=== PATIENT | female | born 1975 | race Hispanic/Latino ===

== ENCOUNTER 2021-06-03 14:07 | Inpatient (IN) | payer OTHER, SELFPAY ==
[2021-06-03] MEDS ORDERED: hydrALAZINE 20 MG/ML VIAL ONE (14:38)
[2021-06-03 15:10] LABS: #Basophils 0.1 thou/uL (0.0-0.2); #Eosinphils 0.1 thou/uL (0.0-0.7); #Lymphocytes 1.5 thou/uL (1.20-3.40); #Monocytes 0.6 thou/uL (0.11-0.59); #Neutrophils 14.7 thou/uL (1.40-6.50); %Basophils 0.4 % (0.0-1.0); %Eosinophils 0.4 % (0.0-10.0); %Lymphocytes 8.8 % (21.0-51.0); %Monocytes 3.4 % (0.0-10.0); Mean Corpuscular HGB CONC 33.5 g/dL (32.0-36.0); Mean Corpuscular Volume 86.5 fL (78.0-98.0); Mean Platelet Volume 7.5 fL (7.4-10.4); Platelet Count 368 thou/uL (130-400); Red Blood Cell (RBC) Count 4.48 mill/uL (4.20-5.40); White Blood Cell (WBC) Count 16.9 thou/uL (4.8-10.8)
[2021-06-03 15:33] LABS: ALT (SGPT) 15 U/L (8-55); AST (SGOT) 15 U/L (5-34); Alkaline Phosphatase 62 U/L (40-110); Anion Gap 16 mmol/L (10-20); BUN (Urea Nitrogen) 7 mg/dL (7.0-18.7); Bilirubin, Total 0.3 mg/dL (0.2-1.2); CK (CPK) 63 U/L (29-168); Calc. Creatinine Clearance 0 mL/min (70-130); Calcium 8.9 mg/dL (7.8-10.44); Carbon Dioxide 19 mmol/L (22-29); Chloride 102 mmol/L (98-107); Glucose 256 mg/dL (70-105); Potassium 3.9 mmol/L (3.5-5.1); Sodium 133 mmol/L (136-145)
[2021-06-03 15:35] LABS: BHCG - Serum Negative (NEGATIVE); Pregs Control Background? CLEAR/WHITE (CLR/WHITE); Pregs Control Bar Appear? YES (CONTROL BAR)
[2021-06-03] MEDS ORDERED: levETIRAcetam in NS 100 ML ONE (15:53)
[2021-06-03] MEDS ORDERED: niCARdipine 25 MG/10 ML VIAL ONE (16:11)
[2021-06-03 16:14] LABS: Thyroid Stimulating Hormone 7.5888 uIU/mL (0.35-4.94)
[2021-06-03] MEDS ORDERED: Amlodipine 5 MG TAB ONE (17:48)
[2021-06-03 17:49] LABS: Amphetamine Not Detected (NotDetected); Barbiturates Screen Not Detected (NotDetected); Benzodiazepine Screen Not Detected (NotDetected); Cocaine Metabolite Screen Not Detected (NotDetected); Methadone Not Detected (NotDetected); Methamphetamine Not Detected (NotDetected); Opiate Screen Not Detected (NotDetected); Oxycodone Screen Not Detected (NotDetected); Phencyclidine (PCP) Not Detected (NotDetected); THC/Cannabinoid Screen Not Detected (NotDetected); Tricyclic Screen Not Detected (NotDetected)
[2021-06-03] MEDS ORDERED: Lorazepam 2 MG/ML VIAL SLOW IVP PRN (17:59)
[2021-06-03] MEDS ORDERED: Senokot S 8.6-50 MG TAB PO PRN (17:59)
[2021-06-03] MEDS ORDERED: Dextrose 50% Abboject 50 ML SYRINGE SLOW IVP PRN (17:59)
[2021-06-03] MEDS ORDERED: Dextrose 5% in Water 1,000 ML IV PRN (17:59)
[2021-06-03] MEDS ORDERED: Ondansetron PF 4 MG/2 ML Vial IVP PRN (17:59)
[2021-06-03] MEDS ORDERED: Bisacodyl 10 MG SUPP PR PRN (17:59)
[2021-06-03] MEDS ORDERED: Calcium Carbonate 500 MG ChewTAB PO PRN (17:59)
[2021-06-03] MEDS ORDERED: HumaLOG 300 UNITS/3 ML VIAL SC PRN (17:59)
[2021-06-03] MEDS ORDERED: Guaifenesin DM 100-10/5 ML UDCUP PO PRN (17:59)
[2021-06-03] MEDS ORDERED: Metoprolol Tartrate 25 MG TAB PO SCH (19:00)
[2021-06-03] MEDS ORDERED: Nitroglycerin 2% Ointment 1 INCH/1 GM Packet ONE (19:03)
[2021-06-03] MEDS ORDERED: Metoprolol Tartrate 50 MG TAB ONE (19:03)
[2021-06-03] MEDS ORDERED: Metoprolol Tartrate 50 MG TAB PO SCH (21:00)
[2021-06-03] MEDS ORDERED: Insulin Glargine 10 UNITS in Pre-Filled Syringe 1 EACH SC SCH (21:00)
[2021-06-03] MEDS: Sodium Chloride 0.9% 1,000 ML IV SCH (21:33)
[2021-06-03] MEDS: Nitroglycerin 2% Ointment 1 INCH/1 GM Packet TOP SCH (21:33)
[2021-06-03 21:41] VITALS: BMI 41.5
[2021-06-03] MEDS: Lantus 1000 UNITS/10 ML VIAL SC SCH (21:59)
[2021-06-03] MEDS: Famotidine 20 MG TAB PO SCH (21:59)
[2021-06-03] MEDS ORDERED: Nitroglycerin 2% Ointment 1 INCH/1 GM Packet TOP SCH (22:00)
[2021-06-03 22:16] LABS: SARS-CoV-2 NAA Rapid Test Not Detected (NotDetected)
[2021-06-04] MEDS: Nitroglycerin 2% Ointment 1 INCH/1 GM Packet TOP SCH ×4 (03:23→20:52)
[2021-06-04] MEDS: Sodium Chloride 0.9% 1,000 ML IV SCH ×2 (03:24→15:25)
[2021-06-04 04:52] LABS: #Eosinphils 0.1 thou/uL (0.0-0.7); #Lymphocytes 2.8 thou/uL (1.20-3.40); #Monocytes 0.7 thou/uL (0.11-0.59); #Neutrophils 6.3 thou/uL (1.40-6.50); %Basophils 0.2 % (0.0-1.0); %Eosinophils 1.3 % (0.0-10.0); %Lymphocytes 27.9 % (21.0-51.0); %Neutrophils 63.7 % (42.0-75.0); Hemoglobin 10.5 g/dL (12.0-16.0); Mean Corpuscular HGB CONC 33.4 g/dL (32.0-36.0); Mean Corpuscular Hemoglobin 29.5 pg (27.0-31.0); Mean Corpuscular Volume 88.3 fL (78.0-98.0); Mean Platelet Volume 7.7 fL (7.4-10.4); Platelet Count 319 thou/uL (130-400); RBC Distribution Width 14.3 % (11.5-14.5); Red Blood Cell (RBC) Count 3.55 mill/uL (4.20-5.40); White Blood Cell (WBC) Count 9.9 thou/uL (4.8-10.8)
[2021-06-04 04:57] LABS: Hemoglobin A1c 6.5 % (4.0-6.0)
[2021-06-04 05:21] LABS: Anion Gap 13 mmol/L (10-20); BUN (Urea Nitrogen) 9 mg/dL (7.0-18.7); Calc. Creatinine Clearance 214 mL/min (70-130); Calcium 8.4 mg/dL (7.8-10.44); Carbon Dioxide 20 mmol/L (22-29); Chloride 108 mmol/L (98-107); Glucose 131 mg/dL (70-105); Potassium 3.5 mmol/L (3.5-5.1); Sodium 137 mmol/L (136-145)
[2021-06-04] MEDS: Levothyroxine Sodium 75 MCG TAB PO SCH (05:29)
[2021-06-04 05:45] LABS: Free T4 (Free Thyroxine) 0.67 ng/dL (0.70-1.48); Thyroid Stimulating Hormone 4.7084 uIU/mL (0.35-4.94)
[2021-06-04] MEDS: Amlodipine 10 MG TAB PO SCH (09:29)
[2021-06-04] MEDS: Famotidine 20 MG TAB PO SCH ×2 (09:29→20:51)
[2021-06-04] MEDS: Enoxaparin Sodium 40 MG/0.4 ML SYRINGE SC SCH (09:29)
[2021-06-04] MEDS: Lantus 1000 UNITS/10 ML VIAL SC SCH (09:29)
[2021-06-04] MEDS: Metoprolol Tartrate 50 MG TAB PO SCH ×2 (09:29→20:51)
[2021-06-04] MEDS ORDERED: Iopamidol 370 76% 100 ML VIAL ONE (09:37)
[2021-06-04 11:00] LABS: Syphilis Antibody Nonreactive (Nonreactive); Syphilis Antibody Index 0.04 S/CO (<1.00 Non-Reactive)
[2021-06-04] MEDS: HumaLOG 300 UNITS/3 ML VIAL SC PRN (12:22)
[2021-06-04] MEDS ORDERED: hydrALAZINE 20 MG/ML VIAL SLOW IVP PRN (12:34)
[2021-06-04] MEDS ORDERED: Lisinopril 20 MG TAB PO SCH (14:15)
[2021-06-04] MEDS: Acetaminophen 325 MG TAB PO PRN (21:03)
[2021-06-05] MEDS: Sodium Chloride 0.9% 1,000 ML IV SCH (02:11)
[2021-06-05] MEDS: Acetaminophen 325 MG TAB PO PRN (02:58)
[2021-06-05 03:36] VITALS: TEMP 98.4
[2021-06-05] MEDS: Nitroglycerin 2% Ointment 1 INCH/1 GM Packet TOP SCH (04:47)
[2021-06-05] MEDS: Levothyroxine Sodium 75 MCG TAB PO SCH (04:47)
[2021-06-05] MEDS: HumaLOG 300 UNITS/3 ML VIAL SC PRN ×2 (04:55→12:53)
[2021-06-05 08:00] VITALS: BP 145/70
[2021-06-05] MEDS: Metoprolol Tartrate 50 MG TAB PO SCH (08:03)
[2021-06-05] MEDS: Enoxaparin Sodium 40 MG/0.4 ML SYRINGE SC SCH (08:04)
[2021-06-05] MEDS: Amlodipine 10 MG TAB PO SCH (08:04)
[2021-06-05] MEDS: Famotidine 20 MG TAB PO SCH (08:04)
[2021-06-05] MEDS ORDERED: Lisinopril 20 MG TAB PO SCH (09:00)
== END 2021-06-05 14:01 | disposition home or self-care (01) | DRG 101 ==
LOC: ERS 14:07 → 2NO 17:29
PROVIDERS: ADMIT Internal Medicine; ATTEND Hospitalist
DX: G40.409 Other generalized epilepsy and epileptic syndromes, not intractable, without status epilepticus (principal); I16.1 Hypertensive emergency; Z68.41 Body mass index [BMI] 40.0-44.9, adult; Z20.822 Contact with and (suspected) exposure to COVID-19; I10 Essential (primary) hypertension; E11.9 Type 2 diabetes mellitus without complications; E03.9 Hypothyroidism, unspecified; E66.01 Morbid (severe) obesity due to excess calories; E86.0 Dehydration; Z79.899 Other long term (current) drug therapy; Z79.890 Hormone replacement therapy; Z91.14 Patient's other noncompliance with medication regimen
CPT/HCPCS: 36415; 36416; 70450; 70470; 71045; 80048; 80053; 80306; 82550; 82607; 82746; 83036; 83605; 84439; 84443; 84481; 84484; 84703; 85025; 86780; 87040; 87086; 93005; 93306; 94760; 95712; 95819; 95957; 96361; 96365; 96366; 96375; J0360; J1650; J1815; J1953; J7050; Q9967; U0002

== ENCOUNTER 2024-02-11 11:42 | Emergency (ER) | payer OTHER ==
[2024-02-11 12:36] LABS: Bacteria/HPF 1+ HPF (None Seen); Bilirubin Negative (Negative); Blood, Urine Negative (Negative); CAUTI Indications for Culture Dysuria,urgency,freq; Clarity Clear (Clear); Glucose, Urine (Dipstick) Normal (Negative); Ketone, Urine Negative (Negative); Leukocyte Negative Leu/uL (Negative); Nitrite Negative (Negative); Protein, Urine (Dipstick) Negative (Neg-Trace); RBC/HPF 0-3 HPF (0-3); Urobilinogen Normal mg/dL (Less than 2); WBC/HPF 0-3 HPF (0-3)
[2024-02-11 12:37] LABS: Urine Culture Reflex No No
[2024-02-11 12:44] LABS: #Basophils 0.07 10x3/uL (0.0-0.2); %Basophils 0.9 % (0.0-1.0); %Eosinophils 5.3 % (0.0-10.0); %Lymphocytes 26.3 % (21.0-51.0); %Monocytes 6.7 % (0.0-10.0); %Neutrophils 60.4 % (42.0-75.0); Hematocrit 25.7 % (36.0-47.0); Hemoglobin 7.1 g/dL (12.0-16.0); Mean Corpuscular HGB CONC 27.6 g/dL (32.0-36.0); Mean Corpuscular Hemoglobin 18.3 pg (27.0-31.0); Mean Corpuscular Volume 66.2 fL (78.0-98.0); Mean Platelet Volume 9.1 fL (7.4-10.4); Platelet Count 523 10x3/uL (130-400); RBC Distribution Width 20.5 % (11.5-14.5); Red Blood Cell (RBC) Count 3.88 mill/uL (4.20-5.40)
[2024-02-11 13:02] LABS: ALT (SGPT) 11 U/L (8-55); AST (SGOT) 12 U/L (5-34); Albumin 3.5 g/dL (3.5-5.0); Alkaline Phosphatase 40 U/L (40-110); Anion Gap 7 mmol/L (10-20); BHCG - Serum Negative (NEGATIVE); BUN (Urea Nitrogen) 12 mg/dL (7.0-18.7); Bilirubin, Total 0.3 mg/dL (0.2-1.2); Calc. Creatinine Clearance 0 mL/min (70-130); Calcium 8.8 mg/dL (7.8-10.44); Carbon Dioxide 23 mmol/L (22-29); Chloride 111 mmol/L (98-107); Estimated GFR 100; Globulin 3.7 g/dL (2.4-3.5); Glucose 127 mg/dL (70-105); Pregs Control Background? CLEAR/WHITE (CLR/WHITE); Pregs Control Bar Appear? YES (CONTROL BAR); Protein, Total 7.2 g/dL (6.0-8.3); Sodium 137 mmol/L (136-145)
[2024-02-11 13:09] LABS: Anisocytosis SLIGHT = 6-15 cells HPF (0-5); Hypochromia SLIGHT = 6-15 cells HPF (0-5); Microcytosis SLIGHT = 6-15 cells HPF (0-5); Platelet Adequacy Comment Platelets Increased; Polychromasia SLIGHT = 2-3 cells HPF (0-2); Target Cells SLIGHT = 2-5 cells HPF (0-1); Troponin I Less than 0.010 ng/mL (< 0.028)
== END 2024-02-11 17:12 | disposition home or self-care (01) ==
LOC: ERS 11:42
DX: D64.9 Anemia, unspecified (principal); I10 Essential (primary) hypertension; E11.9 Type 2 diabetes mellitus without complications
CPT/HCPCS: 36415; 36430; 71045; 80053; 81001; 84484; 84703; 85025; 86850; 86900; 86901; 93005; P9016